=== PATIENT | female | born 1980 | race African-American/Black ===

== ENCOUNTER 2023-12-20 10:20 | Emergency (ER) | payer MEDICAID ==
[~2023-12-20] VITALS: Ht 157.5 cm; Wt 77.0 kg
[2023-12-20 10:27] VITALS: BP 124/90; PULSE 85; RESP 16; TEMP 98.5; O2SAT 100
[2023-12-20] MEDS ORDERED: PRED5TAB MT (11:52)
[2023-12-20] MEDS ORDERED: GABA-532 MT (11:52)
== END 2023-12-20 12:22 | disposition home or self-care (01) ==
LOC: ER 11:00
DX: M06.9 Rheumatoid arthritis, unspecified (principal); M54.6 Pain in thoracic spine; R07.89 Other chest pain
CPT/HCPCS: 99283